=== PATIENT | male | born 1960 | race Caucasian/White ===

== ENCOUNTER → 2020-03-12 | Day surgery (SDC) | payer MEDICARE, OTHER ==
[~2020-03-12] MED LIST: AMLODIPINE BESY10 MG PO; OMEPRAZOLE20 M2 PO; SIMVASTATIN20 MG PO; ZOCOR20 MG PO
[2020-03-12 07:32] LABS: BUN/CREATININE RATIO 10 (0-10)
[2020-03-12 07:37] LABS: HEMOGLOBIN 14.4 gm/dl (14.0-17.5); RED BLOOD COUNT 5.05 M/UL (4.20-5.50); WHITE BLOOD COUNT 5.5 K/UL (4.5-11.0)
== END | disposition home or self-care (01) ==
LOC: OR 06:38
PROVIDERS: Orthopaedic Surgery
DX: S52.252A Displaced comminuted fracture of shaft of ulna, left arm, initial encounter for closed fracture (principal); I10 Essential (primary) hypertension; J98.11 Atelectasis; E78.5 Hyperlipidemia, unspecified; K21.9 Gastro-esophageal reflux disease without esophagitis; Z79.899 Other long term (current) drug therapy; Z20.822 Contact with and (suspected) exposure to COVID-19; W18.39XA Other fall on same level, initial encounter
CPT/HCPCS: 36415; 71045; 73110; 76000; 80048; 85027; 85610; 85730; 87635; 93005; C1713; J0690; J1100; J2001; J2250; J2405; J2704; J3010; J7120